=== PATIENT | male | born 1935 | race Caucasian/White ===

== ENCOUNTER 2017-11-29 08:19 | Inpatient (IN) | payer MEDICARE ==
[~2017-11-29] VITALS: Ht 177.8 cm; Wt 74.1 kg
[~2017-11-29 08:19] MED LIST: ALLO300T PO; CALC200T3 PO; CEFD300C37 PO; DOCU-131 PO; IMODIUM PEG; LISI-170 PO; MILK OF MAGNESIA PO; POLY17PO5 PO; TAMS-11 PO; TRAM50TA2 PO; TYLENOL PO
[2017-11-29 08:55] LABS: BASOPHILS # (AUTO) 0.04 x10^3/uL (0-0.1); BASOPHILS % (AUTO) 1 % (0-1); EOSINOPHILS # (AUTO) 0.34 x10^3/uL (0-0.4); EOSINOPHILS % (AUTO) 4 % (1-7); LYMPHOCYTES # (AUTO) 1.58 x10^3/uL (1-3.4); LYMPHOCYTES % (AUTO) 19 % (22-44); MD NO; MEAN CORPUSCULAR HEMOGLOBIN 32.4 pg (27.5-34.5); MEAN CORPUSCULAR HGB CONC 34.1 g/dL (33.2-36.2); MEAN CORPUSCULAR VOLUME 94.8 fL (81-97); MEAN PLATELET VOLUME 9.6 fL (7.4-10.4); MONOCYTES % (AUTO) 9 % (2-9); NEUTROPHILS # (AUTO) 5.65 x10^3/uL (1.8-6.8); NEUTROPHILS % (AUTO) 68 % (42-75); PLATELET COUNT 217 x10^3/uL (130-400); RED CELL DISTRIBUTION WIDTH 13.6 % (9.4-14.8)
[2017-11-29] MEDS ORDERED: SODIUM CHLORIDE FLUSH 10ML SYR IVF ONE (09:00)
[2017-11-29 09:10] LABS: ALANINE AMINOTRANSFERASE 22 U/L (12-78); ALBUMIN 3.8 g/dL (3.4-5.0); ANION GAP 5 mmol/L (5-15); CALCIUM 9.1 mg/dL (8.5-10.1); CHLORIDE 108 mmol/L (98-107); CREATININE 1.13 mg/dL (0.7-1.3)
[2017-11-29 09:15] LABS: ALKALINE PHOSPHATASE 65 U/L (45-117); BILIRUBIN,TOTAL 0.8 mg/dL (0.2-1.0); TOTAL PROTEIN 7.3 g/dL (6.4-8.2); TROPONIN I < 0.015 ng/mL (0.000-0.045)
[2017-11-29] MEDS ORDERED: LABETALOL 5MG/ML, 20ML IVPush PRN (11:00)
[2017-11-29] MEDS ORDERED: POLYETHYLENE GLYCOL 17 GM PACKET PO PRN (11:00)
[2017-11-29] MEDS ORDERED: ONDANSETRON ODT 4 MG PO PRN (11:00)
[2017-11-29] MEDS ORDERED: ONDANSETRON 2MG/ML, 2ML IVPush PRN (11:00)
[2017-11-29 11:33] LABS: CULTURE INDICATED? YES; MICROSCOPIC INDICATED
[2017-11-29 11:44] VITALS: BP 152/74
[2017-11-29 14:09] VITALS: BP 149/78
[2017-11-29 14:40] VITALS: BP 170/60
[2017-11-29 14:42] VITALS: BP 171/82
[2017-11-29 14:43] VITALS: BP 148/70
[2017-11-29] MEDS: SODIUM CHLORIDE 0.9% 1,000 ML IV SCH (15:19)
[2017-11-29] MEDS: ATORVASTATIN 40 MG TABLET PO SCH (19:55)
[2017-11-29 20:00] VITALS: BP_SYST 139; BP_SYST 142; BP_SYST 151; BP_DIAS 73; BP_DIAS 77; BP_DIAS 89
[2017-11-30] MEDS: SODIUM CHLORIDE 0.9% 1,000 ML IV SCH ×3 (00:20→17:32)
[2017-11-30 02:00] VITALS: BP 141/87
[2017-11-30 04:47] LABS: BASOPHILS # (AUTO) 0.08 x10^3/uL (0-0.1); BASOPHILS % (AUTO) 1 % (0-1); EOSINOPHILS % (AUTO) 6 % (1-7); LYMPHOCYTES # (AUTO) 2.06 x10^3/uL (1-3.4); LYMPHOCYTES % (AUTO) 24 % (22-44); MD NO; MEAN CORPUSCULAR HEMOGLOBIN 32.3 pg (27.5-34.5); MEAN CORPUSCULAR HGB CONC 34.1 g/dL (33.2-36.2); MEAN CORPUSCULAR VOLUME 94.7 fL (81-97); MEAN PLATELET VOLUME 10.1 fL (7.4-10.4); MONOCYTES # (AUTO) 0.82 x10^3/uL (0.2-0.8); MONOCYTES % (AUTO) 10 % (2-9); NEUTROPHILS # (AUTO) 5.14 x10^3/uL (1.8-6.8); NEUTROPHILS % (AUTO) 60 % (42-75); PLATELET COUNT 184 x10^3/uL (130-400); RED BLOOD COUNT 4.66 x10^6/uL (4.38-5.82); RED CELL DISTRIBUTION WIDTH 13.3 % (9.4-14.8)
[2017-11-30 04:54] LABS: ALBUMIN 3.1 g/dL (3.4-5.0); ANION GAP 6 mmol/L (5-15); CALCIUM 8.3 mg/dL (8.5-10.1); CHLORIDE 110 mmol/L (98-107)
[2017-11-30 05:05] LABS: ALANINE AMINOTRANSFERASE 18 U/L (12-78); ALKALINE PHOSPHATASE 55 U/L (45-117); BILIRUBIN,TOTAL 0.8 mg/dL (0.2-1.0); CHOL/HDL RATIO 3.9; CHOLESTEROL, TOTAL 145 mg/dL (140-239); HDL CHOL % 26 % (26-37); HDL CHOLESTEROL (DIRECT) 37 mg/dL (40-60); LDL CHOLESTEROL,CALCULATED 81 mg/dL (54-169); LDL/HDL RATIO 2.2 (0.5-3.0); TOTAL PROTEIN 5.9 g/dL (6.4-8.2); TRIGLYCERIDES 133 mg/dL (50-200); VLDL CHOLESTEROL 27 mg/dL (0-25)
[2017-11-30 07:11] VITALS: BP 128/75
[2017-11-30 07:15] VITALS: BP 145/77
[2017-11-30 07:21] VITALS: BP 158/95
[2017-11-30] MEDS: LISINOPRIL 10 MG TABLET PO SCH (08:56)
[2017-11-30] MEDS: ALLOPURINOL 300 MG TABLET PO SCH (08:56)
[2017-11-30] MEDS: ASPIRIN 81 MG TABLET CHEW PO/NG SCH (08:56)
[2017-11-30] MEDS: TAMSULOSIN 0.4 MG CAP.ER.24H PO SCH (08:56)
[2017-11-30] MEDS: SENNA/DOCUSATE TABLET PO SCH (08:57)
[2017-11-30 14:00] VITALS: BP 127/68
[2017-11-30 18:34] VITALS: BP 124/75
[2017-11-30] MEDS: ATORVASTATIN 40 MG TABLET PO SCH (20:43)
[2017-12-01 00:17] VITALS: BP_SYST 129; BP_SYST 130; BP_SYST 146; BP_DIAS 71; BP_DIAS 85
[2017-12-01 05:48] LABS: ALBUMIN 3.5 g/dL (3.4-5.0); ANION GAP 7 mmol/L (5-15); CHLORIDE 109 mmol/L (98-107)
[2017-12-01] MEDS: SODIUM CHLORIDE 0.9% 1,000 ML IV SCH (05:48)
[2017-12-01 05:57] LABS: CALCIUM 8.8 mg/dL (8.5-10.1); CREATININE 0.99 mg/dL (0.7-1.3)
[2017-12-01 06:17] LABS: BASOPHILS # (AUTO) 0.05 x10^3/uL (0-0.1); BASOPHILS % (AUTO) 1 % (0-1); EOSINOPHILS # (AUTO) 0.34 x10^3/uL (0-0.4); EOSINOPHILS % (AUTO) 4 % (1-7); LYMPHOCYTES # (AUTO) 1.73 x10^3/uL (1-3.4); LYMPHOCYTES % (AUTO) 19 % (22-44); MD NO; MEAN CORPUSCULAR HEMOGLOBIN 32.5 pg (27.5-34.5); MEAN CORPUSCULAR HGB CONC 34.2 g/dL (33.2-36.2); MEAN CORPUSCULAR VOLUME 94.9 fL (81-97); MEAN PLATELET VOLUME 10.2 fL (7.4-10.4); MONOCYTES % (AUTO) 8 % (2-9); NEUTROPHILS # (AUTO) 6.55 x10^3/uL (1.8-6.8); NEUTROPHILS % (AUTO) 70 % (42-75); PLATELET COUNT 173 x10^3/uL (130-400); RED BLOOD COUNT 5.01 x10^6/uL (4.38-5.82); RED CELL DISTRIBUTION WIDTH 13.2 % (9.4-14.8)
[2017-12-01 07:00] VITALS: BP 142/53
[2017-12-01] MEDS: TAMSULOSIN 0.4 MG CAP.ER.24H PO SCH ×2 (09:00→09:31)
[2017-12-01] MEDS: ALLOPURINOL 300 MG TABLET PO SCH (09:31)
[2017-12-01] MEDS: LISINOPRIL 10 MG TABLET PO SCH (09:32)
[2017-12-01] MEDS: ASPIRIN 81 MG TABLET CHEW PO/NG SCH (09:32)
[2017-12-01] MEDS: SENNA/DOCUSATE TABLET PO SCH (09:35)
[2017-12-01] MEDS ORDERED: LISI-167 PO (13:25)
[2017-12-01] MEDS ORDERED: ASPI-515 PO/NG (13:25)
[2017-12-01] MEDS ORDERED: ATOR40TA78 PO (13:25)
[2017-12-01 14:00] VITALS: BP 148/84
== END 2017-12-01 15:46 | disposition home or self-care (01) | DRG 312 ==
LOC: ED 09:15 → EDIP 10:17 → OBSVTOIN 10:48 → 4EST 11:28
PROVIDERS: ADMIT Hospitalist; ATTEND Hospitalist
DX: I95.1 Orthostatic hypotension (principal); N40.0 Benign prostatic hyperplasia without lower urinary tract symptoms; H26.9 Unspecified cataract; G89.29 Other chronic pain; M48.02 Spinal stenosis, cervical region; H91.90 Unspecified hearing loss, unspecified ear; I10 Essential (primary) hypertension; M10.9 Gout, unspecified; R29.6 Repeated falls; W18.39XA Other fall on same level, initial encounter; G62.9 Polyneuropathy, unspecified; M50.30 Other cervical disc degeneration, unspecified cervical region; M16.12 Unilateral primary osteoarthritis, left hip; Z90.49 Acquired absence of other specified parts of digestive tract; Z90.79 Acquired absence of other genital organ(s); Y93.89 Activity, other specified; Y92.89 Other specified places as the place of occurrence of the external cause
CPT/HCPCS: 36415; 70450; 80048; 80053; 80061; 81001; 82040; 83036; 83605; 83735; 84100; 84439; 84443; 84484; 85025; 87040; 87077; 87086; 93005; 93306; 93880; 99285; G0378; 92523-GN; J7030

== ENCOUNTER 2017-12-18 14:11 | Observation (INO) | payer MEDICARE ==
[~2017-12-18] VITALS: Ht 167.6 cm; Wt 77.1 kg
[~2017-12-18 14:11] MED LIST changes: +ASPI-515 PO/NG; +ATOR40TA78 PO; +LISI-167 PO
[2017-12-18] MEDS ORDERED: SODIUM CHLORIDE FLUSH 10ML SYR IVF ONE (15:00)
[2017-12-18 15:25] LABS: BASOPHILS # (AUTO) 0.06 x10^3/uL (0-0.1); BASOPHILS % (AUTO) 1 % (0-1); EOSINOPHILS # (AUTO) 0.38 x10^3/uL (0-0.4); EOSINOPHILS % (AUTO) 4 % (1-7); LYMPHOCYTES # (AUTO) 2.03 x10^3/uL (1-3.4); LYMPHOCYTES % (AUTO) 22 % (22-44); MD NO; MEAN CORPUSCULAR HEMOGLOBIN 32.1 pg (27.5-34.5); MEAN CORPUSCULAR HGB CONC 33.6 g/dL (33.2-36.2); MEAN CORPUSCULAR VOLUME 95.5 fL (81-97); MONOCYTES # (AUTO) 0.96 x10^3/uL (0.2-0.8); MONOCYTES % (AUTO) 10 % (2-9); NEUTROPHILS # (AUTO) 5.78 x10^3/uL (1.8-6.8); NEUTROPHILS % (AUTO) 63 % (42-75); PLATELET COUNT 193 x10^3/uL (130-400); RED BLOOD COUNT 4.95 x10^6/uL (4.38-5.82); RED CELL DISTRIBUTION WIDTH 13.3 % (9.4-14.8)
[2017-12-18 15:36] LABS: ALANINE AMINOTRANSFERASE 23 U/L (12-78); ALBUMIN 3.5 g/dL (3.4-5.0); ANION GAP 8 mmol/L (5-15); CALCIUM 8.7 mg/dL (8.5-10.1); CHLORIDE 108 mmol/L (98-107); CREATININE 1.04 mg/dL (0.7-1.3)
[2017-12-18 15:39] LABS: ALKALINE PHOSPHATASE 81 U/L (45-117); BILIRUBIN,TOTAL 0.4 mg/dL (0.2-1.0); TOTAL PROTEIN 6.7 g/dL (6.4-8.2)
[2017-12-18] MEDS ORDERED: ACETAMINOPHEN 325 MG TABLET PO PRN (16:30)
[2017-12-18] MEDS ORDERED: POLYETHYLENE GLYCOL 17 GM PACKET PO PRN (16:30)
[2017-12-18 17:07] VITALS: BP 113/67
[2017-12-18] MEDS: SODIUM CHLORIDE 0.9% 1,000 ML IV SCH (17:52)
[2017-12-18 20:15] VITALS: BP 108/62
[2017-12-18] MEDS ORDERED: ATORVASTATIN 40 MG TABLET PO SCH (21:00)
[2017-12-19 04:38] VITALS: BP 110/68
[2017-12-19] MEDS: SODIUM CHLORIDE 0.9% 1,000 ML IV SCH (05:14)
[2017-12-19 07:40] VITALS: BP 119/71
[2017-12-19 08:55] VITALS: BP 129/73
[2017-12-19 08:57] VITALS: BP 148/77
[2017-12-19] MEDS ORDERED: ASPIRIN 81 MG TABLET EC PO SCH (09:00)
[2017-12-19] MEDS ORDERED: MECLIZINE 12.5 MG TABLET PO SCH (09:00)
[2017-12-19] MEDS ORDERED: TAMSULOSIN 0.4 MG CAP.ER.24H PO SCH (09:00)
[2017-12-19] MEDS ORDERED: ALLOPURINOL 300 MG TABLET PO SCH (09:00)
[2017-12-19] MEDS ORDERED: MECL12.52 PO (11:29)
== END 2017-12-19 13:20 | disposition home or self-care (01) ==
LOC: ED 14:35 → EDIP 16:15 → INTOOBSV 16:15 → 4WST 17:12 → DCLOUNGE 12-19 13:16
PROVIDERS: ADMIT Hospitalist; ATTEND Hospitalist
DX: R42 Dizziness and giddiness (principal); Z88.8 Allergy status to other drugs, medicaments and biological substances; Z79.899 Other long term (current) drug therapy
CPT/HCPCS: 36415; 71045; 80053; 85025; 93005; 96360; 96361; 97162; 97165; 99285; G0378; J7030